=== PATIENT | male | born 1940 | race African-American/Black ===

== ENCOUNTER 2016-12-24 15:05 | Emergency (ER) | payer BC ==
[2016-12-24 15:10] VITALS: BP 152/84; PULSE 95; TEMP 98.1; BMI 27.3
--- NOTE | 2016-12-24 15:45 | PDOC ---
History of Present Illness - General Chief Complaint: Foreign Body (FB) Stated Complaint: LT FINGER PAIN Time Seen by Provider: 12/24/16 15:13 History Source: Patient - History of Present Illness Occurred: reports: other Severity: reports: moderate Upper Extremity Pain Location: left: 2nd finger Past History - Past Medical History Allergies/Adverse Reactions: Allergies Allergy/AdvReac Type Severity Reaction Status Date / Time fentanyl [From Duragesic] Allergy Verified 12/24/16 15:07 Penicillins Allergy Verified 12/24/16 15:07 GI Disorders: Yes (diverticulities) - Surgical History Abdominal Surgery: Yes (diverticulitis) Appendectomy: Yes - Suicide/Smoking/Psychosocial Hx Smoking History: Never smoked Information on smoking cessation initiated: No Hx Alcohol Use: No Drug/Substance Use Hx: No Review of Systems - Review of Systems Constitutional: No: Fever Musculoskeletal: Yes: Joint Pain. No: Joint Swelling *Physical Exam - Vital Signs Last Vital Signs Temp Pulse Resp BP Pulse Ox 98.1 F 95 H 18 152/84 100 12/24/16 15:07 12/24/16 15:07 12/24/16 15:07 12/24/16 15:07 12/24/16 15:07 - Physical Exam General Appearance: Yes: Appropriately Dressed. No: Apparent Distress HEENT: positive: Normal Voice Neck: positive: Supple Respiratory/Chest: negative: Respiratory Distress Extremity: positive: Other (tenderness to distal phalanx of L 2nd digit, no sweling or redness, FROMI, sensation intact) Integumentary: positive: Dry, Warm Neurologic: positive: Fully Oriented, Alert, Normal Mood/Affect ED Treatment Course - RADIOLOGY Radiology Studies Ordered: Category Date Time Status FINGER(S) LEFT [RAD] Stat Radiology 12/24/16 15:38 Ordered Medical Decision Making - Medical Decision Making 12/24/16 15:39 76 yo male, no sig hx, her w/ worsening pain to L index for over 1 month. Pain located to distal phalanx and radiates to PIP J. Has not seeked medical are until today. Pt concerned that he has a FB in finger though reasons for this unclear as denies trauma or any specific incident. No swelling, redness, f/c. See exam Finger pain of unclear etiology No findings on exam to explain pain Pt insistent on XR r/o fb though no trauma Declines pain meds in ED -XR pending -anticipate dc w/ pmd f/u 12/24/16 15:46 12/24/16 16:17 XR w/ no abnormalities. Dc w/ PMD f/u *DC/Admit/Observation/Transfer Diagnosis at time of Disposition: Finger pain, left - Discharge Dispostion Disposition: HOME Condition at time of disposition: Good - Referrals Referrals: Héctor Weinstein MD [Primary Care Provider] - - Patient Instructions Additional Instructions: The results of your pain is unclear today as x-rays were negative and did not reveal any foreign body. There were also no signs of infection on exam. Pain could possibly be musculoskeletal such as arthritic in nature. Take Tylenol or Motrin as needed and follow-up with your PMD for further evaluation
== END 2016-12-24 16:16 | disposition home or self-care (01) ==
LOC: JERFT 15:05
DX: M79.645 Pain in left finger(s) (principal)
CPT/HCPCS: 73140-TC-RT; 99281-25

== ENCOUNTER 2017-07-03 04:58 | Day surgery (SDC) | payer BC ==
[2017-07-02 10:28] VITALS: BMI 29.2
[2017-07-03 14:02] VITALS: TEMP 97.6
[2017-07-03] MEDS ORDERED: LIDOCAINE 1%/EPI 1:100000 (20 ML MULTI DOSE VIAL) ONE (15:59)
[2017-07-03] MEDS ORDERED: BUPIVACAINE HCL/PF 0.5% (5MG/ML) 10 ML VIAL ONE ×2 (15:59→16:48)
--- NOTE | 2017-07-03 16:07 | HP ---
Admitting History and Physical - Primary Care Physician PCP: Herve Zimmerman (Podiatry) - Admission Chief Complaint: Complication of internal fixation History of Present Illness: Patient underwent lapidus bunionectomy to the left foot in February of 2017 and has pain at the site since. Plate is irritating skin and we plan to remove the plate and screws. History Source: Medical Record (History deferred to PCP) - Smoking History Smoking history: Never smoked Have you smoked in the past 12 months: No - Alcohol/Substance Use Hx Alcohol Use: No Home Medications - Allergies Allergies/Adverse Reactions: Allergies Allergy/AdvReac Type Severity Reaction Status Date / Time fentanyl [From Duragesic] Allergy Severe passed out Verified 07/03/17 14:12 Penicillins Allergy Intermediate Rash Verified 07/03/17 14:12 - Home Medications Home Medications: Ambulatory Orders Albuterol Sulfate [Proventil HFA Inhaler -] 1 - 2 inh PO TID 07/02/17 Sulfamethoxazole/Trimethoprim [Bactrim Ds -] 1 tab PO BID 07/03/17 Tramadol HCl/Acetaminophen [Tramadol-Acetaminophn 37.5-325] 1 each PO PRN PRN Physical Examination Vital Signs: Vital Signs Temperature 97.6 F 07/03/17 14:13 Pulse Rate 81 07/03/17 14:13 Respiratory Rate 20 07/03/17 14:13 Blood Pressure 132/84 07/03/17 14:13 O2 Sat by Pulse Oximetry (%) 99 07/03/17 14:12 Assessment/Plan Assessment Inflammation of soft tissue secondary to lapidus plate of the left foot first metatarsal cuneiform joint Plan Removal of plate and culture of bone at the joint
[2017-07-03] MEDS ORDERED: MIDAZOLAM HCL 2 MG/2 ML SINGLE DOSE VIAL ONE ×3 (16:21→17:02)
[2017-07-03] MEDS ORDERED: PROPOFOL 20 ML ONE (16:21)
[2017-07-03] MEDS ORDERED: CLINDAMYCIN PHOSPHATE 600 MG/4 ML VIAL IVPB ONE (16:23)
[2017-07-03] MEDS ORDERED: LIDOCAINE 1%/EPI 1:100000 (50 ML MULTI DOSE VIAL) INF ONE ×2 (16:29)
[2017-07-03] MEDS ORDERED: BUPIVACAINE HCL/PF 0.5% (5MG/ML) 10 ML VIAL IJ ONE ×2 (16:29)
[2017-07-03] MEDS ORDERED: KETOROLAC TROMETHAMINE 30 MG/1 ML VIAL ONE (17:02)
[2017-07-03 20:42] VITALS: BP 110/64; PULSE 86
--- NOTE | 2017-07-04 01:24 | OP ---
DATE OF OPERATION: 07/03/2017 SURGEON: Herve Zimmerman DPM PREOPERATIVE DIAGNOSIS: Inflammation of soft tissue secondary to presence of internal fixation, left foot. POSTOPERATIVE DIAGNOSIS: Inflammation of soft tissue secondary to presence of internal fixation, left foot. PROCEDURE: Removal of [employer] Lapidus plate and Arthrex 3.4 axial bone screw from the left first metatarsal cuneiform joint. DESCRIPTION OF PROCEDURE: Under fractional anesthesia and a surgical scrub with betadine scrub and solution x2, the patient was draped using sterile technique. Inspection of the left foot showed a bulbus and inflamed soft tissue envelope covering the left first metatarsocuneiform joint area dorsally. Using a number 15-surgical blade, a linear longitudinal incision was made in the skin and passed through the skin and subcutaneous tissue including a thick layer of postoperative fibrosis. The skin and subcutaneous tissue were reflected medially and laterally and a joint capsule and periosteum were longitudinally incised in a similar fashion and pulled back in retraction, exposing the [employer] bone Lapidus plate and an Arthrex 3.4 mm axial screw. Following soft tissue dissection and exposure of the hardware, the area was inspected. No sign of necrosis, abscess, purulence, or abnormal tissue inflammation was noted other than the excessive fibrosis covering the plate. Using the appropriate star-shaped screwdrivers, four bone screws were removed from the [employer] plate and the [employer]is plate was removed from the foot. Similarly, using a larger screwdriver, the axial screw was removed from the first metatarsocuneiform joint from dorsal [id number] proximal. Following removal of the bone screws and plate hardware, the area was inspected. No sign of purulence was noted. No sign of nonunion in the osteotomy was noted. The first metatarsal was loaded and the arthrodesis seemed solid and healed. Using a rongeur, the osteotomy site was identified and then two sections of bone were removed from the dorsal aspect; one for bone culture and one for bone biopsy. Following this procedure, the wound was copiously irrigated with sterile saline and then the deep tissues were reapproximated in one layer and sutured with continuous 4-0 Vicryl suture for reapproximation. Skin was reapproximated and sutured with 3-0 nylon continuous interlocking suture. A dry sterile dressing was then applied to the left foot. The patient tolerated the surgical procedure well and left the operating room stable, alert, awake, and in no pain. RENÉE TAYLOR/[id number]
--- NOTE | 2017-07-07 14:05 | PATH ---
Surgical Pathology Report Patient Name: ALBERTA ANDERSON Med. Rec. #: [id number] /Age/Gender: 1940 (Age: 76) / M Account: [id number] Location: [facility] SURGICAL Taken: 07/03/2017 Received: 07/04/2017 Reported: 07/07/2017 Physicians: Herve Zimmerman M.D. Specimen(s) Received A: BONE BIOPSY FIRST METATARSAL BASE LEFT FOOT B: PLATES AND SCREWS FROM LEFT FOOT Clinical History Displacement of internal fixation device of bone Final Diagnosis A. BONE, LEFT FIRST METATARSAL, EXCISION: BONE WITH REACTIVE CHANGES AND INTERSTITIAL FIBROSIS. B. ORTHOPEDIC HARDWARE, LEFT FOOT, REMOVAL: METALLIC PLATE AND SCREWS CONSISTENT WITH ORTHOPEDIC HARDWARE (GROSS ONLY). Electronically Signed Paul Ratliff M.D. Gross Description A. Received in formalin labeled "first metatarsal bone left foot "is a aden focally hemorrhagic bone measuring 0.5 x 0.4 x 0.3 cm. The specimen is entirely submitted after brief decalcification in one cassette. B. Received fresh labeled "plates and screws from left foot" are 5 metallic screws and plate. The metallic screws range in size from 1 cm to 3 cm in length. The metallic plate measures 3.5 x 1 cm. No sections are taken. For gross examination only. CANDACE/07/04/2017 ladarius/07/04/2017
== END 2017-07-03 19:00 | disposition home or self-care (01) ==
LOC: JASU-SURG 04:58
PROVIDERS: ATTEND Podiatrist Foot Surgery
PROC: 0QPP04Z Removal of Internal Fixation Device from Left Metatarsal, Open Approach (ICD-10-PCS; principal; 2017-07-03 15:30)
DX: T84.84XA Pain due to internal orthopedic prosthetic devices, implants and grafts, initial encounter (principal)
CPT/HCPCS: 87070; 87075; 87205; 88300-TC; 88304-TC; 88311-TC

== ENCOUNTER 2018-04-15 09:18 | Emergency (ER) | payer BC ==
[2018-04-15 09:27] VITALS: BP 146/69; PULSE 77; TEMP 98.4; BMI 28.8
[2018-04-15] MEDS ORDERED: KETOROLAC TROMETHAMINE 60 MG/2 ML VIAL IM ONE (10:02)
[2018-04-15] MEDS ORDERED: CYCLOBENZAPRINE HCL 10 MG TABLET (FP) PO ONE (10:02)
[2018-04-15] MEDS ORDERED: KETOROLAC TROMETHAMINE 60 MG/2 ML VIAL ONE (10:06)
[2018-04-15] MEDS ORDERED: CYCLOBENZAPRINE HCL 10 MG TABLET (FP) ONE (10:06)
--- NOTE | 2018-04-15 10:07 | PDOC ---
History of Present Illness - General Chief Complaint: Pain Stated Complaint: BACK/RT LEG PAIN Time Seen by Provider: 04/15/18 09:44 History Source: Patient Exam Limitations: Clinical Condition - History of Present Illness Initial Comments: 04/15/18 10:03 Patient with no significant past medical history present with complaint of one- week history of worsening lower back pain on the right side radiating to posterior right thigh. Patient denies trauma or injury to back. reported increased pain when getting up from a sitting position or laying position. Patient denies any other symptoms. Timing/Duration: 1 week Past History - Past Medical History Allergies/Adverse Reactions: Allergies Allergy/AdvReac Type Severity Reaction Status Date / Time fentanyl [From Duragesic] Allergy Severe passed out Verified 04/15/18 09:27 Penicillins Allergy Intermediate Rash Verified 04/15/18 09:27 Home Medications: Ambulatory Orders Methocarbamol [Robaxin -] 500 mg PO BID PRN #14 tablet 04/15/18 Naproxen 500 mg PO BID PRN #20 tablet 04/15/18 Anemia: No Asthma: Yes Cancer: No Cardiac Disorders: No CVA: No COPD: No CHF: No Dementia: No Diabetes: No GI Disorders: Yes (diverticulitis) Disorders: No HTN: No Hypercholesterolemia: Yes Liver Disease: No Seizures: No Thyroid Disease: No - Surgical History Abdominal Surgery: Yes (diverticulitis) Appendectomy: Yes Cardiac Surgery: No Cholecystectomy: No Lung Surgery: No Neurologic Surgery: No Orthopedic Surgery: Yes - Suicide/Smoking/Psychosocial Hx Smoking History: Never smoked Have you smoked in the past 12 months: No Information on smoking cessation initiated: No Hx Alcohol Use: No Drug/Substance Use Hx: No Substance Use Type: None Review of Systems - Review of Systems Able to Perform ROS?: Yes Is the patient limited Setswana proficient: No Constitutional: No: Weakness HEENTM: No: Symptoms Reported Respiratory: No: Symptoms reported Cardiac (ROS): No: Symptoms Reported : No: Burning, Dysuria, Frequency, Flank Pain, Urgency Musculoskeletal: Yes: Back Pain (right side lower back pain), Muscle Pain ( right side lower back pain). No: Muscle Weakness Neurological: No: Numbness, Paresthesia, Tingling All Other Systems: Reviewed and Negative *Physical Exam - Vital Signs Last Vital Signs Temp Pulse Resp BP Pulse Ox 98.4 F 77 19 146/69 98 04/15/18 09:24 04/15/18 09:24 04/15/18 09:24 04/15/18 09:24 04/15/18 09:24 - Physical Exam Comments: 04/15/18 10:05 GENERAL: Well developed, well nourished. Awake and alert. No acute distress. CARDIOVASCULAR: Regular rate and rhythm. No murmurs, rubs, or gallops. PULMONARY: No evidence of respiratory distress. Lungs clear to auscultation bilaterally. No wheezing, rales or rhonchi. ABDOMINAL: Soft. Non-tender. Non-distended. No rebound or guarding. No organomegaly. Normoactive bowel sounds MUSCULOSKELETAL : mild tenderness over posterior paravertebral muscle lumbosacral spine of L5-S2 on the right side. Positive straight leg test of right leg with pain to right lower back and hip with elevation of right lower extremity to 70. No bony deformities EXTREMITIES: No cyanosis. No clubbing. No edema. No calf tenderness. SKIN: Warm and dry. Normal capillary refill. NEUROLOGICAL: Alert, awake, appropriate. No motor deficits in the lower extremities. Gait is normal without ataxia. PSYCHIATRIC: Cooperative. Good eye contact. Appropriate mood and affect. General Appearance: Yes: Nourished, Appropriately Dressed. No: Apparent Distress Moderate Sedation - Procedure Monitoring Vital Signs: Procedure Monitoring Vital Signs Temperature 98.4 F 04/15/18 09:24 Pulse Rate 77 04/15/18 09:24 Respiratory Rate 19 04/15/18 09:24 Blood Pressure 146/69 04/15/18 09:24 O2 Sat by Pulse Oximetry (%) 98 04/15/18 09:24 ED Treatment Course - RADIOLOGY Radiology Studies Ordered: Category Date Time Status SPINE-LUMBAR SACRAL [RAD] Stat Radiology 04/15/18 10:02 Ordered Medical Decision Making - Medical Decision Making 04/15/18 10:06 04/15/18 10:03 Patient with no significant past medical history present with complaint of one- week history of worsening lower back pain on the right side radiating to posterior right thigh. Patient denies trauma or injury to back. Exam significant for mild tenderness over posterior paravertebral muscle lumbosacral spine of L5-S2 on the right side. Positive straight leg test of right leg with pain to right lower back and hip with elevation of right lower extremity to 70 X-ray of lumbosacral spine ordered. Toradol 60 mg IM and cyclobenzaprine 10 mg by mouth ordered for pain. Patient symptoms likely sciatica with low back pain. Treat based on imaging results. 04/15/18 10:07 04/15/18 10:55 X-ray of lumbosacral shows no acute fracture or dislocation. Patient symptoms likely lumbar ago with sciatica. Patient is stable for outpatient treatment with muscle relaxer and NSAIDs with orthopedics follow-up. *DC/Admit/Observation/Transfer Diagnosis at time of Disposition: Lumbago with sciatica, right side Qualifiers: Chronicity: acute Back pain laterality: right Qualified Code(s): M54.41 - Lumbago with sciatica, right side - Discharge Dispostion Disposition: HOME Condition at time of disposition: Stable Decision to Admit order: No - Prescriptions Prescriptions: Methocarbamol [Robaxin -] 500 mg PO BID PRN #14 tablet PRN Reason: Back Pain Naproxen 500 mg PO BID PRN #20 tablet PRN Reason: Back Pain - Referrals Referrals: Alfredo Lowe MD [Staff Physician] - - Patient Instructions Printed Discharge Instructions: DI for Sciatica, DI for Back Pain With Sciatica Additional Instructions: Your x-ray shows no acute fracture or dislocation. The symptoms is likely from muscle spasm causing sciatica. Take medication as prescribed for pain. Follow- up referred orthopedics as symptoms persist more than 4 days for possible MRI. - Post Discharge Activity
== END 2018-04-15 10:56 | disposition home or self-care (01) ==
LOC: JERFT 09:18
PROC: 3E0233Z Introduction of Anti-inflammatory into Muscle, Percutaneous Approach (ICD-10-PCS; principal; 2018-04-15)
DX: M54.41 Lumbago with sciatica, right side (principal)
CPT/HCPCS: 72100-TC-FY; 99281-25

== ENCOUNTER 2018-10-20 14:47 | Emergency (ER) | payer BC ==
--- NOTE | 2018-10-20 14:53 | PDOC ---
Rapid Medical Evaluation Time Seen by Provider: 10/20/18 14:49 Medical Evaluation: Allergies Allergy/AdvReac Type Severity Reaction Status Date / Time fentanyl [From Duragesic] Allergy Severe passed out Verified 04/15/18 09:27 Penicillins Allergy Intermediate Rash Verified 04/15/18 09:27 10/20/18 14:49 I have performed a brief in-person evaluation of this patient The patient presents with a chief complaint of: R lower back radiating to RLE x 1 week. No neuro sxs. No trauma. Taking 600mg w/ some relief. 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 Discharge Disposition - Diagnosis Back pain Qualifiers: Back pain location: low back pain Chronicity: unspecified Back pain laterality : right Sciatica presence: unspecified whether sciatica present Qualified Code(s ): M54.5 - Low back pain - Referrals - Patient Instructions - Post Discharge Activity
[2018-10-20 14:57] VITALS: BP 157/79; PULSE 76; TEMP 98.5; BMI 38.0
[2018-10-20] MEDS ORDERED: LIDOCAINE 5% TOPICAL PATCH TP ONE (15:17)
--- NOTE | 2018-10-20 15:26 | PDOC ---
History of Present Illness - General Chief Complaint: Back Pain Stated Complaint: LOWER BACK Time Seen by Provider: 10/20/18 14:49 History Source: Patient Exam Limitations: No Limitations Past History - Past Medical History Allergies/Adverse Reactions: Allergies Allergy/AdvReac Type Severity Reaction Status Date / Time fentanyl [From Duragesic] Allergy Severe passed out Verified 10/20/18 14:53 Penicillins Allergy Intermediate Rash Verified 10/20/18 14:53 Home Medications: Ambulatory Orders Methocarbamol [Robaxin -] 500 mg PO BID PRN #14 tablet 04/15/18 Naproxen 500 mg PO BID PRN #20 tablet 04/15/18 Lidocaine 5% Patch [Lidoderm -] 1 patch TP DAILY #7 patch 10/20/18 Anemia: No Asthma: Yes Cancer: No Cardiac Disorders: No CVA: No COPD: No CHF: No Dementia: No Diabetes: No GI Disorders: Yes (diverticulitis) Disorders: No HTN: No Hypercholesterolemia: Yes Liver Disease: No Seizures: No Thyroid Disease: No - Surgical History Abdominal Surgery: Yes (diverticulitis) Appendectomy: Yes Cardiac Surgery: No Cholecystectomy: No Lung Surgery: No Neurologic Surgery: No Orthopedic Surgery: Yes - Suicide/Smoking/Psychosocial Hx Smoking History: Never smoked Have you smoked in the past 12 months: No Information on smoking cessation initiated: No Hx Alcohol Use: No Drug/Substance Use Hx: No Substance Use Type: None *Physical Exam - Vital Signs Last Vital Signs Temp Pulse Resp BP Pulse Ox 98.5 F 76 17 157/79 100 10/20/18 14:54 10/20/18 14:54 10/20/18 14:54 10/20/18 14:54 10/20/18 14:54 - Physical Exam General Appearance: No: Apparent Distress Respiratory/Chest: positive: Lungs Clear, Normal Breath Sounds. negative: Respiratory Distress Cardiovascular: positive: Regular Rhythm, Regular Rate, S1, S2. negative: Murmur Gastrointestinal/Abdominal: positive: Normal Bowel Sounds, Soft. negative: Tender, Distended, Guarding, Rebound Musculoskeletal: negative: CVA Tenderness, Muscle Spasm, Vertebral Tenderness Extremity: positive: Other (+mild TTP along R lateral hip, FROM of R hip) Integumentary: positive: Normal Color. 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 States initially had some LBP 1 week ago, which got better with Motrin. Now the LBP is gone and the pain has moved to R hip. Denies recent fall, prior hip surgeries, fever, sob, cp, abdominal/groin pain, n/v, urinary complaints, numbness/tingling , weakness of extremities. Possible arthritis Plan: R hip xray, Lidocaine patch [Patient states he would prefer not to take any PO meds right now] 10/20/18 15:24 R hip xray negative Will refer to ortho; patient has followed with Dr. Lowe in the past for L foot surgery (around 2 years ago) 10/20/18 15:54 *DC/Admit/Observation/Transfer Diagnosis at time of Disposition: Right hip pain - Discharge Dispostion Disposition: HOME Condition at time of disposition: Stable Decision to Admit order: No - Prescriptions Prescriptions: Lidocaine 5% Patch [Lidoderm -] 1 patch TP DAILY #7 patch - Referrals Referrals: Héctor Weinstein MD [Primary Care Provider] - Alfredo Lowe MD [Staff Physician] - 2 Days - Patient Instructions Printed Discharge Instructions: DI for Hip Pain Additional Instructions: Thank you for choosing [facility]. It was a pleasure taking care of you. You may take Tylenol 650 mg every 6 hours by mouth as needed for mild to moderate pain. Do not take more than 4000 mg of Tylenol in 1 day. Apply lidocaine patch for 12 hours; then remove 12 hours You were referred to orthopedic doctor for further evaluation Return to the Emergency Department if your symptoms worsen or persist or have other concerning symptoms. - Post Discharge Activity
[2018-10-20] MEDS ORDERED: LIDOCAINE 5% TOPICAL PATCH ONE (15:32)
== END 2018-10-20 16:05 | disposition home or self-care (01) ==
LOC: JERFT 14:47
DX: M25.551 Pain in right hip (principal); Z88.0 Allergy status to penicillin; Z88.8 Allergy status to other drugs, medicaments and biological substances
CPT/HCPCS: 73523-TC-FY; 99281-25

== ENCOUNTER 2019-10-19 04:04 | Emergency (ER) | payer BC ==
[2019-10-19 04:11] VITALS: BMI 29.6
--- NOTE | 2019-10-19 04:28 | PDOC ---
History of Present Illness - General Chief Complaint: Chest Pain Stated Complaint: TOOTHACHE/BODY ACHE Time Seen by Provider: 10/19/19 04:14 History Source: Patient Exam Limitations: No Limitations - History of Present Illness Initial Comments: 10/19/19 04:34 78yM w recent tooth fracture presenting w sudden onset hillary shooting chest pain radiating down into abd since yesterday evening. Episodes not exertional/positional, lasts a few seconds, occurs every few minutes. Not relie radha w motrin. Broke L upper incisor 2 weeks ago, only saw dentist yesterday who DC home w motrin, clindamycin. Denies fam cardiac hx, smoking, recent covid exposure, no sick contacts. Denies fever, n/v, cough, SOB, urinary/bowel mvmt changes. Past History - Medical History Allergies/Adverse Reactions: Allergies Allergy/AdvReac Type Severity Reaction Status Date / Time fentanyl [From Duragesic] Allergy Severe passed out Verified 10/19/19 04:11 Penicillins Allergy Intermediate Rash Verified 10/19/19 04:11 Home Medications: Ambulatory Orders Methocarbamol [Robaxin -] 500 mg PO BID PRN #14 tablet 04/15/18 Naproxen 500 mg PO BID PRN #20 tablet 04/15/18 Lidocaine 5% Patch [Lidoderm -] 1 patch TP DAILY #7 patch 10/20/18 Docusate Sodium [Colace -] 100 mg PO BID #60 capsule 10/19/19 Oxycodone HCl/Acetaminophen [Percocet 5-325 mg Tablet] 1 tab PO Q6H PRN #16 tablet MDD 4 10/19/19 Anemia: No Asthma: Yes Cancer: No Cardiac Disorders: No CVA: No COPD: No CHF: No Dementia: No Diabetes: No GI Disorders: Yes (diverticulitis) Disorders: No HTN: No Hypercholesterolemia: Yes Liver Disease: No Seizures: No Thyroid Disease: No - Surgical History Abdominal Surgery: Yes (diverticulitis) Appendectomy: Yes Cardiac Surgery: No Cholecystectomy: No Lung Surgery: No Neurologic Surgery: No Orthopedic Surgery: Yes - Psycho-Social/Smoking History Smoking History: Never smoked Have you smoked in the past 12 months: No - Substance Abuse Hx (Audit-C & DAST Scrn) How often the patient has a drink containing alcohol: Never Score: In Men: 4 or > Positive; In Women: 3 or > Positive: 0 Screen Result (Pos requires Nsg. Audit-10AR): Negative In the last yr the pt used illegal drug/Rx for NonMed reason: No Score: Yes response is considered Positive: 0 Screen Result (Positive result requires Nsg. DAST-10): Negative Review of Systems - Review of Systems Constitutional: No: Chills, Fever HEENTM: No: Eye Pain, Ear Discharge Respiratory: No: Cough, Shortness of Breath Cardiac (ROS): Yes: Chest Pain. No: Lightheadedness ABD/GI: No: Abdominal Distended, Constipated, Diarrhea, Nausea, Vomiting : No: Burning, Flank Pain Musculoskeletal: No: Back Pain, Joint Pain Integumentary: No: Bruising, Dryness Neurological: No: Headache, Seizure Psychiatric: No: Anxiety, Depression Endocrine: No: Intolerance to Cold, Intolerance to Heat Hematologic/Lymphatic: No: Anemia, Blood Clots *Physical Exam - Vital Signs Last Vital Signs Temp Pulse Resp BP Pulse Ox 99.7 F H 92 H 18 147/77 97 10/19/19 04:07 10/19/19 04:07 10/19/19 04:07 10/19/19 04:07 10/19/19 04:07 - Physical Exam General Appearance: Yes: Nourished, Appropriately Dressed, Mild Distress HEENT: positive: EOMI, MARISA, Normal Voice, Other (L lateral incisor class 3 fracture w pulp exposed, no bleeding). negative: Scleral Icterus (R), Scleral Icterus (L) Respiratory/Chest: positive: Lungs Clear, Normal Breath Sounds. negative: Chest Tender, Respiratory Distress, Crackles, Rales, Rhonchi, Stridor, Wheezing Cardiovascular: positive: Regular Rhythm, Regular Rate, S1, S2. negative: Murmur Gastrointestinal/Abdominal: positive: Normal Bowel Sounds, Flat, Soft. negative: Tender, Organomegaly Musculoskeletal: negative: CVA Tenderness (R), CVA Tenderness (L) Integumentary: positive: Normal Color, Warm. negative: Dry, Rash Neurologic: positive: Fully Oriented, Alert Heart Score/ECG Review - History History: Slightly suspicious - Electrocardiogram EKG: Normal - Age Age: >/= 65 - Risk Factors Based on the list above the patient has:: No risk factors known - Troponin Troponin: </= normal limit - Score Heart Score - Total: 2 ED Treatment Course - LABORATORY CBC & Chemistry Diagram: 10/19/19 04:20 10/19/19 04:20 Medical Decision Making - Medical Decision Making 10/19/19 04:40 EKG - NSR, LAD, LVH, HR 87, QTc 462, no ST changes CXR - clear lung muhammad, normal cardiac size --- 78yM w recent tooth fracture presenting w sudden onset hillary shooting chest pain radiating down into abd since yesterday evening. Low concern for ACS (neg trop, HEART 2) vs PNA (clear lungs) vs UTI (neg) Given tylenol, 1.5mL lido/epi supraperiosteal block w pain improvement DC home w PCP, dentist, cards f/u, colace, percocet prescriptions Discharge - Discharge Information Problems reviewed: Yes Clinical Impression/Diagnosis: Chest pain Qualifiers: Chest pain type: unspecified Qualified Code(s): R07.9 - Chest pain, unspecified Tooth fracture Qualifiers: Encounter type: initial encounter Fracture type: open Qualified Code(s): S02.5XXB - Fracture of tooth (traumatic), initial encounter for open fracture Condition: Improved Disposition: HOME - Additional Discharge Information Prescriptions: Docusate Sodium [Colace -] 100 mg PO BID #60 capsule Oxycodone HCl/Acetaminophen [Percocet 5-325 mg Tablet] 1 tab PO Q6H PRN #16 tablet MDD 4 PRN Reason: Pain - Follow up/Referral Referrals: Hcétor Weinstein MD [Primary Care Provider] - - Patient Discharge Instructions Patient Printed Discharge Instructions: DI for Atypical Chest Pain Additional Instructions: Your workup did not show anything concerning Take the prescribed colace as directed Take tylenol or ibuprofen if you have pain Take the prescribed percocet if you have severe pain Please follow up with your dentist, primary care doctor, and cloth classer Come back to the ED if you have worsening chest pain, trouble breathing, or vomiting - Post Discharge Activity
[2019-10-19] MEDS ORDERED: ACETAMINOPHEN 1000 MG/100 ML VIAL (NON FORMULARY) IVPB ONE (04:35)
--- NOTE | 2019-10-19 04:36 | PDOC ---
Attending Attestation - Resident Resident Name: Jose Manuel Burnham - ED Attending Attestation I have performed the following: I have examined & evaluated the patient, The case was reviewed & discussed with the resident, I agree w/resident's findings & plan - HPI HPI: 10/19/19 06:35 see resident hpi - Physicial Exam PE: 10/19/19 06:35 see resident exam - Medical Decision Making 10/19/19 06:172-[id number] male with dental pain, unable to get a dental appointment until Now with intermittent chest pain for several hours prior to arrival Chest x-ray showed no acute abnormality Labs were reviewed, troponin within normal limits EKG showed no acute ST segment abnormalities Due to patient's age and proximity of pain he was advised to stay for an additional troponin which she is refusing at this time He has been advised that he may have had a cardiac event including a heart attack, he states his granddaughter is home alone and has promised as well as his to call 911 or return should he reconsider or develop chest pain again He has not had pain while in the emergency department Discharge - Discharge Information Problems reviewed: Yes Clinical Impression/Diagnosis: Chest pain Qualifiers: Chest pain type: unspecified Qualified Code(s): R07.9 - Chest pain, unspecified Tooth fracture Qualifiers: Encounter type: initial encounter Fracture type: open Qualified Code(s): S02.5XXB - Fracture of tooth (traumatic), initial encounter for open fracture Condition: Improved Disposition: HOME - Additional Discharge Information Prescriptions: Docusate Sodium [Colace -] 100 mg PO BID #60 capsule - Follow up/Referral Referrals: Héctor Weinstein MD [Primary Care Provider] - - Patient Discharge Instructions Patient Printed Discharge Instructions: DI for Atypical Chest Pain Additional Instructions: Your workup did not show anything concerning Take the prescribed colace as directed Take tylenol or ibuprofen if you have pain Take the prescribed percocet if you have severe pain Please follow up with your dentist, primary care doctor, and computer mechanic Come back to the ED if you have worsening chest pain, trouble breathing, or vomiting - Post Discharge Activity
[2019-10-19] MEDS ORDERED: LIDOCAINE 1%/EPI 1:100000 (20 ML MULTI DOSE VIAL) INF ONE (04:54)
[2019-10-19] MEDS ORDERED: ACETAMINOPHEN INJECTION 100 ML IVPB ONE (04:59)
[2019-10-19] MEDS ORDERED: LIDOCAINE 1%/EPI 1:100000 (20 ML MULTI DOSE VIAL) ONE (05:00)
[2019-10-19 05:06] LABS: BASO % 0.4 % (0-2.0); HEMATOCRIT 41.4 % (35.4-49); HEMOGLOBIN 13.8 GM/dL (11.7-16.9); LYMPH % 15.5 % (8-40); MCHC 33.3 g/dl (32.0-35.9); MEAN CELL VOLUME 87.2 fl (80-96); MEAN PLT VOLUME 9.3 fl (7.5-11.1); MONO % 13.2 % (3.8-10.2); NEUT % 69.9 % (42.8-82.8); PLATELET COUNT 159 K/MM3 (134-434); RBC 4.75 M/mm3 (4.00-5.60); RDW 14.3 % (11.9-15.9); WHITE BLOOD COUNT 8.2 K/mm3 (4.0-10.0)
[2019-10-19 05:12] LABS: INR 1.29 (0.83-1.09); PROTHROMBIN TIME (PATIENT) 15.3 SEC (9.7-13.0)
[2019-10-19 05:26] LABS: ALBUMIN 3.9 g/dl (3.4-5.0); ALK PHOS 65 U/L (45-117); ANION GAP 7 MMOL/L (8-16); BILIRUBIN,TOTAL 1.4 mg/dL (0.2-1); BLOOD UREA NITROGEN 9.2 mg/dL (7-18); CALCIUM 8.8 mg/dL (8.5-10.1); CHLORIDE 104 mmol/L (98-107); CO2 28 mmol/L (21-32); CREATININE 1.2 mg/dL (0.55-1.3); GLUCOSE,RANDOM 107 mg/dL (74-106); LIPASE 58 U/L (73-393); POTASSIUM 3.5 mmol/L (3.5-5.1); SGOT/AST 16 U/L (15-37); SGPT/ALT 24 U/L (13-61); SODIUM 139 mmol/L (136-145); TOT PROT 7.5 g/dl (6.4-8.2)
[2019-10-19 06:12] LABS: EPI CELLS 28 /uL (0-25.1); HYALINE CASTS 7 /uL (0-3.1); URINE APPEARANCE CLEAR; URINE BACTERIA 11 /uL (0-1359); URINE BILIRUBIN NEGATIVE (NEGATIVE); URINE COLOR YELLOW; URINE GLUCOSE (UA) NEGATIVE (NEGATIVE); URINE KETONE 1+ (NEGATIVE); URINE LEUK ESTERASE NEGATIVE (NEGATIVE); URINE NITRITE NEGATIVE (NEGATIVE); URINE PROTEIN NEGATIVE (NEGATIVE); URINE RBC 19 /uL (0-23.9); URINE WBC 11 /uL (0-25.8)
[2019-10-19 06:16] VITALS: BP 126/59; PULSE 81; TEMP 99.8
--- NOTE | 2019-10-19 09:53 | EKG ---
Test Reason : Blood Pressure : / mmHG Vent. Rate : 087 BPM Atrial Rate : 087 BPM P-R Int : 138 ms QRS Dur : 094 ms QT Int : 384 ms P-R-T Axes : 071 -41 047 degrees QTc Int : 462 ms NORMAL SINUS RHYTHM LEFT AXIS DEVIATION LEFT ANTERIOR FASCICULAR BLOCK MINIMAL VOLTAGE CRITERIA FOR LVH, MAY BE NORMAL VARIANT ABNORMAL ECG Confirmed by MD ANA MARÍA, JOVITA ([id number]) on 10/19/2019 9:53:45 AM Referred By: Confirmed By:JOVITA GOTTI MD
== END 2019-10-19 06:43 | disposition home or self-care (01) ==
LOC: JER 04:04
PROC: 3E033GC Introduction of Other Therapeutic Substance into Peripheral Vein, Percutaneous Approach (ICD-10-PCS; principal; 2019-10-19)
DX: R07.9 Chest pain, unspecified (principal); S02.5XXA Fracture of tooth (traumatic), initial encounter for closed fracture; Y99.9 Unspecified external cause status
CPT/HCPCS: 36415; 71046-TC-FY; 80053; 81003; 82550; 82553; 83605; 83690; 84484; 85025; 85610; 87086; 93005; 93010; 96374; 99285-25; J0131

== ENCOUNTER 2020-10-17 13:04 | Emergency (ER) | payer BC ==
[2020-10-17 13:19] VITALS: BP 138/76; PULSE 76; TEMP 97.4; BMI 31.1
== END 2020-10-17 15:50 | disposition home or self-care (01) ==
LOC: JER 13:04
DX: M79.605 Pain in left leg (principal)
CPT/HCPCS: 93971-TC; 99284-25

== ENCOUNTER 2020-11-01 13:13 | Emergency (ER) | payer BC ==
[2020-11-01 13:28] VITALS: BMI 30.7
[2020-11-01 15:47] VITALS: BP 145/75; PULSE 80; TEMP 98
== END 2020-11-01 15:51 | disposition home or self-care (01) ==
LOC: JER 13:13
DX: S86.112A Strain of other muscle(s) and tendon(s) of posterior muscle group at lower leg level, left leg, initial encounter (principal); Y93.01 Activity, walking, marching and hiking
CPT/HCPCS: 93971-TC; 99284-25

== ENCOUNTER 2022-06-20 21:39 | Emergency (ER) | payer BC, OTHER ==
[2022-06-20 21:56] VITALS: BP 112/79; PULSE 90; RESP 20; TEMP 97.9; BMI 30.7
[2022-06-20] MEDS ORDERED: LIDOCAINE PATCH REMOVAL MC SCH (22:00)
[2022-06-20] MEDS ORDERED: ACETAMINOPHEN 325 MG TABLET (FP) PO ONE (22:37)
[2022-06-20] MEDS ORDERED: DIPHTH,PERTUSS(ACELL),TET 0.5 ML DISP.SYRIN IM ONE (22:53)
[2022-06-20] MEDS ORDERED: LIDOCAINE 5% TOPICAL PATCH TP ONE (23:04)
[2022-06-21] MEDS ORDERED: ACETAMINOPHEN 325 MG TABLET (FP) ONE (00:16)
[2022-06-21] MEDS ORDERED: DIPHTH,PERTUSS(ACELL),TET 0.5 ML DISP.SYRIN IM ONE (00:16)
[2022-06-21] MEDS ORDERED: LIDOCAINE 5% TOPICAL PATCH ONE (00:16)
== END 2022-06-21 01:52 | disposition home or self-care (01) ==
LOC: JER 21:39
PROC: 3E0234Z Introduction of Serum, Toxoid and Vaccine into Muscle, Percutaneous Approach (ICD-10-PCS; principal; 2022-06-20)
DX: M25.562 Pain in left knee (principal); W01.0XXA Fall on same level from slipping, tripping and stumbling without subsequent striking against object, initial encounter
CPT/HCPCS: 70450-TC; 71046-TC-FY; 72125-TC; 73562-TC-LT-FY; 90471; 90715; 99284-25

== ENCOUNTER 2022-08-24 12:43 | Emergency (ER) | payer OTHER ==
[2022-08-24 12:46] VITALS: BP 131/74; PULSE 90; RESP 18; TEMP 98.4; BMI 28.4
[2022-08-24] MEDS ORDERED: ACETAMINOPHEN 500 MG TABLET (FP) PO ONE (15:23)
== END 2022-08-24 15:57 | disposition home or self-care (01) ==
LOC: JERFT 12:43
DX: M79.645 Pain in left finger(s) (principal); M79.644 Pain in right finger(s); W10.8XXA Fall (on) (from) other stairs and steps, initial encounter; Y93.01 Activity, walking, marching and hiking
CPT/HCPCS: 73110-TC-LT-FY; 73130-TC-LT-FY; 73130-TC-RT-FY; 99283-25

== ENCOUNTER 2023-11-11 19:06 | Emergency (ER) | payer OTHER ==
[2023-11-11 19:19] VITALS: BP 139/77; PULSE 89; RESP 19; TEMP 98.5; BMI 31.2
[2023-11-11] MEDS: ACETAMINOPHEN 325 MG TABLET (FP) PO ONE (19:44)
[2023-11-11] MEDS ORDERED: ACETAMINOPHEN 500 MG TABLET (FP) ONE (20:25)
[2023-11-11] MEDS: ACETAMINOPHEN 500 MG TABLET (FP) PO ONE (20:40)
== END 2023-11-11 21:12 | disposition home or self-care (01) ==
LOC: JER 19:06
DX: M25.511 Pain in right shoulder (principal); M25.562 Pain in left knee; W01.0XXA Fall on same level from slipping, tripping and stumbling without subsequent striking against object, initial encounter; Y92.094 Garage of other non-institutional residence as the place of occurrence of the external cause
CPT/HCPCS: 70450-TC; 70486-TC; 72125-TC; 73030-TC-RT-FY; 73060-TC-RT-FY; 99284-25

== ENCOUNTER 2024-02-26 16:30 | Emergency (ER) | payer OTHER ==
[2024-02-26 16:56] VITALS: RESP 17; TEMP 97.3; BMI 33.4
[2024-02-26 19:56] VITALS: BP 134/74; PULSE 80
== END 2024-02-26 20:46 | disposition home or self-care (01) ==
LOC: JER 16:30
DX: G91.9 Hydrocephalus, unspecified (principal); R51.9 Headache, unspecified; G89.29 Other chronic pain
CPT/HCPCS: 70450-TC; 99284-25

== ENCOUNTER 2024-05-24 12:28 | Emergency (ER) | payer OTHER ==
[2024-05-24 12:37] VITALS: BMI 30.4
[2024-05-24] MEDS ORDERED: ALBUTEROL SO4 2.5/IPRATROPIUM 0.5 INH SOL 3 ML VIAL.NEB. NEB ONE (13:31)
[2024-05-24] MEDS: ALBUTEROL SO4 2.5/IPRATROPIUM 0.5 INH SOL 3 ML VIAL.NEB. NEB ONE (13:35)
[2024-05-24 15:22] VITALS: BP 123/70; PULSE 85; RESP 17; TEMP 97.9
== END 2024-05-24 15:24 | disposition home or self-care (01) ==
LOC: JERFT 12:28
PROC: 3E0F7GC Introduction of Other Therapeutic Substance into Respiratory Tract, Via Natural or Artificial Opening (ICD-10-PCS; principal; 2024-05-24)
DX: R05.1 Acute cough (principal); J34.89 Other specified disorders of nose and nasal sinuses; R06.2 Wheezing; Z20.822 Contact with and (suspected) exposure to COVID-19
CPT/HCPCS: 0241U-QW; 71046-TC-FY; 99284-25

== ENCOUNTER 2024-05-28 18:32 | Inpatient (IN) | payer OTHER ==
[2024-05-28 19:16] VITALS: BMI 30.7
[2024-05-28 20:07] LABS: BASO % 0.3 % (0-2.0); HEMATOCRIT 43.4 % (35.4-49); HEMOGLOBIN 14.2 GM/dL (11.7-16.9); LYMPH % 10.5 % (8-40); MCH 28.9 pg (25.7-33.7); MCHC 32.8 g/dl (32.0-35.9); MEAN CELL VOLUME 88.3 fl (80-96); MEAN PLT VOLUME 8.8 fl (7.5-11.1); MONO % 12.6 % (3.8-10.2); NEUT % 76.6 % (42.8-82.8); PLATELET COUNT 164 10^3/uL (134-434); RBC 4.91 M/mm3 (4.00-5.60); RDW 13.9 % (11.9-15.9); WHITE BLOOD COUNT 12.5 K/mm3 (4.0-10.0)
[2024-05-28 20:16] LABS: INR 1.42 (0.83-1.09); PROTHROMBIN TIME (PATIENT) 15.5 SEC (9.7-13.0)
[2024-05-28 20:19] LABS: ACTIVATED PTT 30.5 SECONDS (25.2-36.5)
[2024-05-28] MEDS ORDERED: ACETAMINOPHEN INJECTION 100 ML ONE (20:21)
[2024-05-28 20:24] LABS: CHLORIDE 102 mmol/L (98-107); POTASSIUM 5.2 mmol/L (3.5-5.1); SODIUM 135 mmol/L (136-145)
[2024-05-28 20:26] LABS: CALCIUM 9.1 mg/dL (8.5-10.1)
[2024-05-28 20:27] LABS: ALBUMIN 3.6 g/dl (3.4-5.0); ANION GAP 6 mmol/L (4-13); BLOOD UREA NITROGEN 15.1 mg/dL (7-18); CO2 27 mmol/L (21-32); GLUCOSE,RANDOM 127 mg/dL (74-106); MAGNESIUM 2.1 mg/dL (1.8-2.4)
[2024-05-28 20:30] LABS: CREATININE 1.1 mg/dL (0.55-1.3); PHOSPHOROUS 2.1 mg/dL (2.5-4.9); SGOT/AST 44 U/L (15-37); SGPT/ALT 44 U/L (13-61)
[2024-05-28 20:32] LABS: BILIRUBIN,TOTAL 3.4 mg/dL (0.2-1); TOT PROT 7.8 g/dl (6.4-8.2)
[2024-05-28 20:33] LABS: ALK PHOS 60 U/L (45-117)
[2024-05-28] MEDS: ACETAMINOPHEN 1000 MG/100 ML BAG IVPB ONE (20:34)
[2024-05-28] MEDS: SODIUM CHLORIDE 0.9% 500 ML INFUS.BAG IV ONE (20:34)
[2024-05-28 21:31] LABS: VENOUS BASE EXCESS 1.7 mmol/L (-2-2); VENOUS O2 SATURATION 79.7 % (70-80); VENOUS PCO2 44.7 mmHg (38-52); VENOUS PH 7.399 (7.310-7.410)
[2024-05-28] MEDS: LACTATED RINGERS SOLUTION 1000 ML INFUS.BAG IV ONE (21:32)
[2024-05-28] MEDS ORDERED: CEFTRIAXONE 1 G/50 ML PREMIX 50 ML IVPB ONE (21:35)
[2024-05-28] MEDS ORDERED: NAPH,MB-DB/K PH,MBDB POWDER PACKET ONE (21:35)
[2024-05-28] MEDS: NAPH,MB-DB/K PH,MBDB POWDER PACKET PO ONE (22:08)
[2024-05-28] MEDS: CEFTRIAXONE 1,000 MG in DEXTROSE 5%-WATER - 50 ML IVPB ONE (22:08)
[2024-05-28 22:44] LABS: POTASSIUM 3.5 mmol/L (3.5-5.1)
[2024-05-28 22:46] LABS: CALCIUM 8.7 mg/dL (8.5-10.1)
[2024-05-28 22:47] LABS: ALBUMIN 3.3 g/dl (3.4-5.0); BLOOD UREA NITROGEN 15.5 mg/dL (7-18)
[2024-05-28 22:50] LABS: CREATININE 1.1 mg/dL (0.55-1.3)
[2024-05-28 22:51] LABS: TOT PROT 6.8 g/dl (6.4-8.2)
[2024-05-28 23:00] LABS: BILIRUBIN,DIRECT 0.8 mg/dL (0.0-0.2)
[2024-05-28] MEDS: AZITHROMYCIN IVPB 500 MG in DEXTROSE 5%-WATER - 250 ML IVPB ONE (23:30)
[2024-05-28] MEDS ORDERED: AZITHROMYCIN IVPB 500 MG/250 ML BAG IVPB ONE (23:31)
[2024-05-29] MEDS: ALBUTEROL SO4 2.5/IPRATROPIUM 0.5 INH SOL 3 ML VIAL.NEB. NEB ONE (00:18)
[2024-05-29] MEDS ORDERED: ALBUTEROL SO4 2.5/IPRATROPIUM 0.5 INH SOL 3 ML VIAL.NEB. NEB ONE (00:22)
[2024-05-29] MEDS: ALBUTEROL SO4 2.5/IPRATROPIUM 0.5 INH SOL 3 ML VIAL.NEB. NEB SCH (07:31)
[2024-05-29 07:45] LABS: BASO % 0.1 % (0-2.0); HEMATOCRIT 41.4 % (35.4-49); HEMOGLOBIN 13.9 GM/dL (11.7-16.9); MCH 29.5 pg (25.7-33.7); MCHC 33.6 g/dl (32.0-35.9); MEAN CELL VOLUME 87.8 fl (80-96); MEAN PLT VOLUME 9.1 fl (7.5-11.1); MONO % 12.8 % (3.8-10.2); NEUT % 74.1 % (42.8-82.8); PLATELET COUNT 154 10^3/uL (134-434); RBC 4.72 M/mm3 (4.00-5.60); RDW 14.4 % (11.9-15.9); WHITE BLOOD COUNT 9.8 K/mm3 (4.0-10.0)
[2024-05-29] MEDS: methylPREDNISolone NA SUCC 40 MG/1 ML VIAL IVPUSH ONE (08:03)
[2024-05-29 08:04] LABS: POTASSIUM 3.6 mmol/L (3.5-5.1)
[2024-05-29 08:10] LABS: CALCIUM 8.8 mg/dL (8.5-10.1)
[2024-05-29 08:11] LABS: ALBUMIN 3.2 g/dl (3.4-5.0); BLOOD UREA NITROGEN 14.7 mg/dL (7-18); MAGNESIUM 2.2 mg/dL (1.8-2.4)
[2024-05-29 08:14] LABS: PHOSPHOROUS 2.4 mg/dL (2.5-4.9)
[2024-05-29 08:16] LABS: BILIRUBIN,TOTAL 2.8 mg/dL (0.2-1); TOT PROT 6.7 g/dl (6.4-8.2)
[2024-05-29] MEDS: ENOXAPARIN NA (PORCINE) 40 MG/0.4 ML DISP.SYRIN SQ SCH (09:26)
[2024-05-29 12:25] LABS: N-TERMINAL BNP 161.6 pg/ml (5-450)
[2024-05-29] MEDS: methylPREDNISolone NA SUCC 40 MG/1 ML VIAL IVPUSH SCH ×2 (13:08→15:46)
[2024-05-29] MEDS ORDERED: ALBUTEROL SO4 2.5/IPRATROPIUM 0.5 INH SOL 3 ML VIAL.NEB. NEB PRN (14:01)
[2024-05-29 16:01] LABS: EPI CELLS 6 /uL (0-25.1); HYALINE CASTS 1 /uL (0-3.1); URINE APPEARANCE CLEAR; URINE BACTERIA 2 /uL (0-1359); URINE BILIRUBIN 1+ (NEGATIVE); URINE COLOR DK YELLOW; URINE GLUCOSE (UA) TRACE (NEGATIVE); URINE KETONE 1+ (NEGATIVE); URINE LEUK ESTERASE NEGATIVE (NEGATIVE); URINE NITRITE NEGATIVE (NEGATIVE); URINE PROTEIN 1+ (NEGATIVE); URINE RBC 32 /uL (0-23.9); URINE WBC 11 /uL (0-25.8)
[2024-05-29] MEDS: POTASSIUM PHOSPHATE 30 MM in SODIUM CHLORIDE 500 ML IVPB ONE (21:22)
[2024-05-29] MEDS: CEFTRIAXONE 1 G/50 ML PREMIX 50 ML IVPB SCH (21:22)
[2024-05-29] MEDS: AZITHROMYCIN IVPB 500 MG/250 ML BAG IVPB SCH (23:10)
[2024-05-29] MEDS ORDERED: ALBUTEROL SO4 2.5/IPRATROPIUM 0.5 INH SOL 3 ML VIAL.NEB. NEB SCH (23:55)
[2024-05-30 08:13] LABS: BASO % 0.1 % (0-2.0); HEMOGLOBIN 12.8 GM/dL (11.7-16.9); LYMPH % 6.3 % (8-40); MCH 28.9 pg (25.7-33.7); MCHC 32.8 g/dl (32.0-35.9); MEAN CELL VOLUME 87.8 fl (80-96); MEAN PLT VOLUME 9.3 fl (7.5-11.1); NEUT % 87.6 % (42.8-82.8); PLATELET COUNT 188 10^3/uL (134-434); RBC 4.44 M/mm3 (4.00-5.60); RDW 14.1 % (11.9-15.9); WHITE BLOOD COUNT 14.6 K/mm3 (4.0-10.0)
[2024-05-30 08:14] LABS: POTASSIUM 3.8 mmol/L (3.5-5.1)
[2024-05-30 08:17] LABS: CALCIUM 8.6 mg/dL (8.5-10.1); MAGNESIUM 2.3 mg/dL (1.8-2.4)
[2024-05-30 08:18] LABS: BLOOD UREA NITROGEN 14.2 mg/dL (7-18)
[2024-05-30 08:20] LABS: CREATININE 0.8 mg/dL (0.55-1.3)
[2024-05-30 08:21] LABS: PHOSPHOROUS 3.7 mg/dL (2.5-4.9)
[2024-05-30 08:22] LABS: BILIRUBIN,TOTAL 0.9 mg/dL (0.2-1); TOT PROT 6.6 g/dl (6.4-8.2)
[2024-05-30] MEDS: methylPREDNISolone NA SUCC 40 MG/1 ML VIAL IVPUSH SCH (21:06)
[2024-05-30 22:04] LABS: HEMATOCRIT 39.8 % (35.4-49); HEMOGLOBIN 13.4 GM/dL (11.7-16.9); MCH 29.5 pg (25.7-33.7); MCHC 33.8 g/dl (32.0-35.9); MEAN CELL VOLUME 87.5 fl (80-96); MEAN PLT VOLUME 8.8 fl (7.5-11.1); PLATELET COUNT 225 10^3/uL (134-434); RBC 4.55 M/mm3 (4.00-5.60); RDW 14.3 % (11.9-15.9)
[2024-05-30] MEDS: MELATONIN 5 MG TABLETS PO ONE (22:04)
[2024-05-30 22:20] LABS: POTASSIUM 3.8 mmol/L (3.5-5.1)
[2024-05-30 22:23] LABS: ALBUMIN 3.3 g/dl (3.4-5.0); CALCIUM 9.1 mg/dL (8.5-10.1)
[2024-05-30 22:24] LABS: BLOOD UREA NITROGEN 15.9 mg/dL (7-18); MAGNESIUM 2.5 mg/dL (1.8-2.4)
[2024-05-30 22:27] LABS: CREATININE 1.1 mg/dL (0.55-1.3); PHOSPHOROUS 2.8 mg/dL (2.5-4.9)
[2024-05-30 22:28] LABS: BILIRUBIN,TOTAL 0.7 mg/dL (0.2-1); TOT PROT 7.1 g/dl (6.4-8.2)
[2024-05-30 23:22] LABS: ANISOCYTOSIS 1+; MACROCYTOSIS 0
[2024-05-31] MEDS: MAG HYDROX/AL HYDROX/SIMETH 30 ML UNIT-DOSE CUP PO ONE (09:37)
[2024-05-31 13:36] LABS: HEMATOCRIT 39.8 % (35.4-49); HEMOGLOBIN 13.1 GM/dL (11.7-16.9); MCH 28.6 pg (25.7-33.7); MCHC 32.8 g/dl (32.0-35.9); MEAN CELL VOLUME 87.1 fl (80-96); MEAN PLT VOLUME 8.9 fl (7.5-11.1); PLATELET COUNT 220 10^3/uL (134-434); RBC 4.57 M/mm3 (4.00-5.60); RDW 14.5 % (11.9-15.9); WHITE BLOOD COUNT 18.1 K/mm3 (4.0-10.0)
[2024-05-31 14:41] LABS: POTASSIUM 3.6 mmol/L (3.5-5.1)
[2024-05-31 14:43] LABS: ALBUMIN 3.2 g/dl (3.4-5.0); BLOOD UREA NITROGEN 15.4 mg/dL (7-18); CALCIUM 8.7 mg/dL (8.5-10.1); MAGNESIUM 2.5 mg/dL (1.8-2.4)
[2024-05-31 14:47] LABS: PHOSPHOROUS 2.5 mg/dL (2.5-4.9)
[2024-05-31 14:48] LABS: BILIRUBIN,TOTAL 0.6 mg/dL (0.2-1)
[2024-05-31 21:49] VITALS: RESP 18
[2024-06-01 07:16] LABS: HEMATOCRIT 39.4 % (35.4-49); HEMOGLOBIN 12.7 GM/dL (11.7-16.9); MCH 28.4 pg (25.7-33.7); MCHC 32.2 g/dl (32.0-35.9); MEAN CELL VOLUME 88.2 fl (80-96); MEAN PLT VOLUME 8.8 fl (7.5-11.1); PLATELET COUNT 217 10^3/uL (134-434); RBC 4.46 M/mm3 (4.00-5.60); RDW 13.8 % (11.9-15.9); WHITE BLOOD COUNT 14.6 K/mm3 (4.0-10.0)
[2024-06-01 07:34] LABS: BLOOD UREA NITROGEN 16.4 mg/dL (7-18); CALCIUM 8.6 mg/dL (8.5-10.1)
[2024-06-01 07:35] LABS: MAGNESIUM 2.6 mg/dL (1.8-2.4)
[2024-06-01 07:38] LABS: CREATININE 0.9 mg/dL (0.55-1.3)
[2024-06-01 07:39] LABS: BILIRUBIN,TOTAL 0.5 mg/dL (0.2-1); TOT PROT 6.5 g/dl (6.4-8.2)
[2024-06-01 09:54] VITALS: BP 125/71; PULSE 109; TEMP 97.9
[2024-06-02] MEDS ORDERED: methylPREDNISolone NA SUCC 40 MG/1 ML VIAL IVPUSH SCH (10:00)
== END 2024-06-01 15:05 | disposition home or self-care (01) | DRG 871 ==
LOC: JER 18:32 → JERBED 21:06 → OBSVTOIN 05-29 01:04 → J4W 05-29 02:07
PROVIDERS: ADMIT Internal Medicine; ATTEND Internal Medicine
DX: A41.9 Sepsis, unspecified organism (principal); G93.41 Metabolic encephalopathy; J18.9 Pneumonia, unspecified organism; J45.901 Unspecified asthma with (acute) exacerbation; K76.0 Fatty (change of) liver, not elsewhere classified; N28.1 Cyst of kidney, acquired; E80.6 Other disorders of bilirubin metabolism
CPT/HCPCS: 0241U-QW; 36415; 70450-TC; 71045-TC-FY; 71250-TC; 76705-TC; 80053; 81003; 82248; 82550; 82553; 82803; 82962; 83605; 83690; 83735; 83880; 84100; 84484; 85025; 85027; 85610; 85730; 87040; 87070; 87086; 87205; 87899; 93005; 93010; 93306-TC; 94640; 99291; G0378; J0131

== ENCOUNTER 2024-06-21 14:08 | Observation (INO) | payer OTHER ==
[2024-06-21 16:03] LABS: BASO % 0.6 % (0-2.0); EOS % 4.2 % (0-4.5); HEMATOCRIT 41.5 % (35.4-49); HEMOGLOBIN 13.8 GM/dL (11.7-16.9); LYMPH % 35.6 % (8-40); MCH 29.3 pg (25.7-33.7); MCHC 33.2 g/dl (32.0-35.9); MEAN CELL VOLUME 88.3 fl (80-96); MEAN PLT VOLUME 8.8 fl (7.5-11.1); MONO % 12.2 % (3.8-10.2); NEUT % 47.4 % (42.8-82.8); PLATELET COUNT 128 10^3/uL (134-434); RDW 14.9 % (11.9-15.9)
[2024-06-21 16:27] LABS: CHLORIDE 105 mmol/L (98-107); POTASSIUM 4.3 mmol/L (3.5-5.1); SODIUM 140 mmol/L (136-145)
[2024-06-21 16:29] LABS: ALBUMIN 3.4 g/dl (3.4-5.0); ANION GAP 6 mmol/L (4-13); CALCIUM 8.6 mg/dL (8.5-10.1); CO2 29 mmol/L (21-32); GLUCOSE,RANDOM 103 mg/dL (74-106)
[2024-06-21 16:30] LABS: BLOOD UREA NITROGEN 8.4 mg/dL (7-18)
[2024-06-21 16:32] LABS: CREATININE 1.2 mg/dL (0.55-1.3); SGPT/ALT 31 U/L (13-61)
[2024-06-21 16:33] LABS: SGOT/AST 18 U/L (15-37)
[2024-06-21 16:34] LABS: BILIRUBIN,TOTAL 0.8 mg/dL (0.2-1); TOT PROT 6.3 g/dl (6.4-8.2)
[2024-06-21 16:35] LABS: ALK PHOS 69 U/L (45-117)
[2024-06-21 18:08] LABS: PHOSPHOROUS 3.3 mg/dL (2.5-4.9)
[2024-06-21 19:02] LABS: PH,URINE 6.5 (5.0-8.0); URINE APPEARANCE CLEAR; URINE BILIRUBIN NEGATIVE (NEGATIVE); URINE COLOR YELLOW; URINE GLUCOSE (UA) NEGATIVE (NEGATIVE); URINE KETONE TRACE (NEGATIVE); URINE LEUK ESTERASE NEGATIVE (NEGATIVE); URINE NITRITE NEGATIVE (NEGATIVE); URINE PROTEIN NEGATIVE (NEGATIVE)
[2024-06-21] MEDS ORDERED: LORazepam 2 MG/ML SDV VIAL IVPUSH PRN ×2 (21:48→23:45)
[2024-06-21] MEDS ORDERED: ALBUTEROL SO4 HFA INHALER IH PRN (21:50)
[2024-06-21] MEDS ORDERED: LORazepam 2 MG/ML SDV VIAL ONE (22:29)
[2024-06-21] MEDS ORDERED: levETIRAcetam 500 MG/5 ML INJECTION VIAL IVPB ONE (22:32)
[2024-06-21] MEDS: LORazepam 2 MG/ML SDV VIAL IVPUSH STA (22:49)
[2024-06-21] MEDS: levETIRAcetam 500 MG/5 ML INJECTION VIAL IVPB ONE (22:49)
[2024-06-22] MEDS ORDERED: ENOXAPARIN NA (PORCINE) 40 MG/0.4 ML DISP.SYRIN SQ SCH (10:00)
[2024-06-22 10:01] LABS: BASO % 0.7 % (0-2.0); EOS % 4.2 % (0-4.5); HEMATOCRIT 46.1 % (35.4-49); HEMOGLOBIN 14.9 GM/dL (11.7-16.9); LYMPH % 35.4 % (8-40); MCH 29.1 pg (25.7-33.7); MCHC 32.3 g/dl (32.0-35.9); MEAN CELL VOLUME 90.1 fl (80-96); MEAN PLT VOLUME 9.4 fl (7.5-11.1); MONO % 13.2 % (3.8-10.2); NEUT % 46.5 % (42.8-82.8); PLATELET COUNT 135 10^3/uL (134-434); RBC 5.12 M/mm3 (4.00-5.60); RDW 14.9 % (11.9-15.9); WHITE BLOOD COUNT 4.7 K/mm3 (4.0-10.0)
[2024-06-22 10:21] LABS: POTASSIUM 4.7 mmol/L (3.5-5.1)
[2024-06-22 10:24] LABS: ALBUMIN 3.6 g/dl (3.4-5.0); BLOOD UREA NITROGEN 7.9 mg/dL (7-18); CALCIUM 9.2 mg/dL (8.5-10.1); MAGNESIUM 2.2 mg/dL (1.8-2.4)
[2024-06-22 10:27] LABS: CREATININE 0.9 mg/dL (0.55-1.3)
[2024-06-22 10:29] LABS: BILIRUBIN,TOTAL 1.7 mg/dL (0.2-1); TOT PROT 6.9 g/dl (6.4-8.2)
[2024-06-22] MEDS ORDERED: ESCITALOPRAM OXALATE 10 MG TABLET ONE (11:42)
[2024-06-22] MEDS ORDERED: levETIRAcetam 500 MG TABLET (FP) PO ONE (11:42)
[2024-06-22] MEDS ORDERED: ATENOLOL 50 MG TABLET (FP) ONE (11:43)
[2024-06-22] MEDS: ESCITALOPRAM OXALATE 10 MG TABLET PO SCH (11:52)
[2024-06-22] MEDS: levETIRAcetam 500 MG TABLET (FP) PO SCH (11:52)
[2024-06-22] MEDS: ATENOLOL 50 MG TABLET (FP) PO SCH (11:53)
[2024-06-23 00:35] VITALS: BMI 29.7
[2024-06-23] MEDS: ENOXAPARIN NA (PORCINE) 40 MG/0.4 ML DISP.SYRIN SQ SCH (09:26)
[2024-06-23 11:13] LABS: ABSOLUTE IMMATURE GRANULOCYTES 0.01 x10^3/uL (0.0-0.031); BASOPHILS # 0.02 x10^3/uL (0.01-0.08); EOSINOPHIL % 4.5 % (0.8-7.0); EOSINOPHILS # 0.18 x10^3/uL (0.04-0.54); HEMATOCRIT 40.6 % (40.1-51.0); HEMOGLOBIN 13.6 g/dL (13.7-17.5); MCHC 33.5 g/dl (32.3-36.5); MEAN CELL VOLUME 86.4 fl (79.0-92.2); MEAN PLT VOLUME 10.7 fl (9.4-12.4); MONOCYTE # 0.51 x10^3/uL (0.30-0.82); MONOCYTE % 12.6 % (5.3-12.2); PLATELET COUNT # 119 x10^3/uL (163-337); RDW 13.6 % (12.6-16.6)
[2024-06-23 11:41] LABS: POTASSIUM 3.9 mmol/L (3.5-5.1)
[2024-06-23 11:42] LABS: CALCIUM 8.9 mg/dL (8.5-10.1)
[2024-06-23 11:43] LABS: ALBUMIN 3.2 g/dl (3.4-5.0); BLOOD UREA NITROGEN 10.1 mg/dL (7-18); MAGNESIUM 1.9 mg/dL (1.8-2.4)
[2024-06-23 11:46] LABS: CREATININE 1.1 mg/dL (0.55-1.3)
[2024-06-23 11:48] LABS: BILIRUBIN,TOTAL 1.5 mg/dL (0.2-1); TOT PROT 6.1 g/dl (6.4-8.2)
[2024-06-23] MEDS: MAGNESIUM OXIDE 400 MG TABLET (FP) PO ONE (12:15)
[2024-06-24 07:47] LABS: ABSOLUTE IMMATURE GRANULOCYTES 0.01 x10^3/uL (0.0-0.031); BASOPHILS # 0.02 x10^3/uL (0.01-0.08); EOSINOPHIL % 3.6 % (0.8-7.0); EOSINOPHILS # 0.16 x10^3/uL (0.04-0.54); HEMATOCRIT 43.2 % (40.1-51.0); HEMOGLOBIN 14.4 g/dL (13.7-17.5); MCHC 33.3 g/dl (32.3-36.5); MEAN CELL VOLUME 85.4 fl (79.0-92.2); MEAN PLT VOLUME 10.5 fl (9.4-12.4); MONOCYTE # 0.57 x10^3/uL (0.30-0.82); MONOCYTE % 12.9 % (5.3-12.2); PLATELET COUNT # 127 x10^3/uL (163-337); RDW 13.4 % (12.6-16.6)
[2024-06-24 08:13] LABS: CALCIUM 9.5 mg/dL (8.5-10.1)
[2024-06-24 08:14] LABS: ALBUMIN 3.6 g/dl (3.4-5.0); BLOOD UREA NITROGEN 9.8 mg/dL (7-18); MAGNESIUM 2.3 mg/dL (1.8-2.4)
[2024-06-24 08:16] LABS: CREATININE 1.1 mg/dL (0.55-1.3)
[2024-06-24 08:18] LABS: TOT PROT 6.5 g/dl (6.4-8.2)
[2024-06-24 10:56] VITALS: BP 104/66; PULSE 84; RESP 16; TEMP 98.6
== END 2024-06-24 11:36 | disposition home health service (06) ==
LOC: JER 14:08 → JERBED 19:57 → J4S 06-22 22:00
PROVIDERS: ADMIT Internal Medicine; ATTEND Nurse Practitioner Acute Care
PROC: 3E023GC Introduction of Other Therapeutic Substance into Muscle, Percutaneous Approach (ICD-10-PCS; principal; 2024-06-21)
PROC: 3E033GC Introduction of Other Therapeutic Substance into Peripheral Vein, Percutaneous Approach (ICD-10-PCS; 2024-06-21)
PROC: 3E033NZ Introduction of Analgesics, Hypnotics, Sedatives into Peripheral Vein, Percutaneous Approach (ICD-10-PCS; 2024-06-21)
DX: R25.3 Fasciculation (principal); K57.92 Diverticulitis of intestine, part unspecified, without perforation or abscess without bleeding; D72.829 Elevated white blood cell count, unspecified; D69.6 Thrombocytopenia, unspecified; J45.909 Unspecified asthma, uncomplicated; R56.9 Unspecified convulsions; E66.9 Obesity, unspecified; R29.6 Repeated falls; Z88.0 Allergy status to penicillin; Z88.8 Allergy status to other drugs, medicaments and biological substances; Z72.0 Tobacco use
CPT/HCPCS: 36415; 70450-TC; 70553-TC; 80053; 81003; 82140; 82550; 82553; 83735; 84100; 84443; 85025; 93005; 93010; 96372; 96374; 96375; 97116-GP; 97161-GP; 99285-25; G0378